=== PATIENT | male | born 1945 | race Caucasian/White ===

== ENCOUNTER → 2020-02-15 | Outpatient (CLI) | payer MEDICARE ==
[~2020-02-15] MED LIST: CHLO25TA PO; DOXA8TAB63 PO; FINA5TAB4 PO; LEVO150T5 PO; LOSA100T14 PO
[2020-02-15 11:18] LABS: ALBUMIN 3.9 g/dL (3.4-5.0); ANION GAP 7 mmol/L (5-15); CALCIUM 9.3 mg/dL (8.5-10.1); CHLORIDE 107 mmol/L (98-107)
[2020-02-15 11:22] LABS: ALANINE AMINOTRANSFERASE 27 U/L (12-78); ALKALINE PHOSPHATASE 55 U/L (45-117); BILIRUBIN,TOTAL 0.6 mg/dL (0.2-1.0); CREATININE 0.88 mg/dL (0.7-1.3); TOTAL PROTEIN 7.5 g/dL (6.4-8.2)
== END | disposition home or self-care (01) ==
LOC: STAR 10:01
PROVIDERS: ATTEND Internal Medicine Geriatric Medicine
DX: Z01.818 Encounter for other preprocedural examination (principal); K63.5 Polyp of colon
CPT/HCPCS: 36415; 80053; 93005

== ENCOUNTER 2020-02-19 07:16 | Day surgery (SDC) | payer MEDICARE ==
[~2020-02-19] VITALS: Ht 180.3 cm; Wt 95.2 kg
[2020-02-19] MEDS ORDERED: CHLORHEXIDINE 15 ML UDC MM STA (07:47)
[2020-02-19 07:48] VITALS: BP 132/82
[2020-02-19] MEDS ORDERED: CHLORHEXIDINE 15 ML UDC ONE (07:52)
[2020-02-19] MEDS ORDERED: LACTATED RINGERS 1,000 ML IV ONE (07:53)
[2020-02-19] MEDS ORDERED: MIDAZOLAM 1 MG/ML, 2ML ONE (10:09)
[2020-02-19] MEDS ORDERED: FENTANYL PF 100 MCG/2ML ONE (10:09)
[2020-02-19] MEDS ORDERED: PROPOFOL 10 MG/ML, 20ML ONE (10:15)
[2020-02-19] MEDS ORDERED: ONDANSETRON 2MG/ML, 2ML IVPush PRN (11:00)
[2020-02-19] MEDS ORDERED: ACETAMINOPHEN 325 MG TABLET PO PRN (11:00)
[2020-02-19] MEDS ORDERED: FENTANYL PF 100 MCG/2ML IV PRN (11:00)
[2020-02-19] MEDS ORDERED: OXYcodone 5 MG/5 ML ORAL.SOL UDC PO PRN (11:00)
[2020-02-19] MEDS ORDERED: MEPERIDINE/PF 25MG/0.5ML IVPush PRN (11:00)
== END 2020-02-19 12:15 | disposition home or self-care (01) ==
LOC: OUT 07:16
PROVIDERS: ATTEND Internal Medicine Geriatric Medicine
DX: D12.2 Benign neoplasm of ascending colon (principal); Z11.59 Encounter for screening for other viral diseases
CPT/HCPCS: 36415; 45390; 87635; 88305; A4648; J2250; J2704; J3010; J7120